=== PATIENT | male | born 1955 | race Caucasian/White ===

== ENCOUNTER → 2019-01-10 09:54 | Outpatient (CLI) | payer BC, SELFPAY ==
[2019-01-10 10:23] LABS: Blood Urea Nitrogen 10 mg/dL (7-18); Creatinine,Serum 0.94 mg/dL (0.70-1.30); Estimated Glomerular Filt Rate 81 ml/min (>60); GFR (African American) 98 ML/MIN (>60)
--- NOTE | 2019-01-10 10:34 | CT_ITS ---
PROCEDURE: CT ABDOMEN PELVIS WO/W CON CLINICAL INDICATION: INQUINAL HERNIA COMPARISON: No exams were available for comparison TECHNIQUE: IV Contrast: 75ML OPTIRAY 350 Oral Contrast 20ml Gastroview Axial images obtained with sagittal and coronal reformats. All CT scans at the facility use one or more dose reduction, viz: automated exposure control, ma/kV adjustment per patient size (including targeted exams where dose is matched to indication, i.e. head), or iterative reconstruction technique. FINDINGS: Lower thorax: No acute finding ABDOMEN: liver there is a 5 millimeter round hypodense focus in the lateral segment of the left hepatic lobe likely benign. There also benign calcified granuloma involving posterior aspect of the right hepatic lobe. There are no suspicious masses or areas of abnormal density involving the liver. Gallbladder: Nondistended. No radio opaque stones. Pancreas: No masses or peripancreatic fluid collections. Spleen: unremarkable Adrenals: unremarkable Kidneys/ureters: There are a few fluid attenuation small posterior right renal cortical lesions suggesting cysts. Left kidney is normal. There are no renal stones or hydronephrosis and there is no hydroureter or ureteral stones. PELVIS: Reproductive: unremarkable Bladder: Urinary bladder is unremarkable. There is a benign appearing small umbilical fat containing hernia. Appendix: Unremarkable. No distention or periappendiceal phlegmonous change. ABDOMEN & PELVIS: Stomach bowel: Nondistended. No obvious mass or thickening. Peritoneum: No abnormal fluid collections. No obvious inflammatory changes. No free air. Lymph nodes: No enlarged lymph nodes apparent. Vasculature: No evidence of abdominal aortic aneurysm. No retroperitoneal hemorrhage evident. Bones: No acute fracture IMPRESSION: Small fat containing umbilical hernia. Hypodense small liver and renal lesions as described above likely benign. Aortic calcifications without dilatation. No acute process. Dictated by: Aleks Caldwell 01/10/2019 13:26 Electronically signed by Aleks Caldwell in [facility] 01/10/2019 13:26
== END ==
PROVIDERS: Referring Provider Emergency Medicine; Visit Provider Emergency Medicine
DX: Z01.818 Encounter for other preprocedural examination (principal); K40.90 Unilateral inguinal hernia, without obstruction or gangrene, not specified as recurrent
CPT/HCPCS: 36415; 74178; 82565; 84520; Q9967

== ENCOUNTER → 2020-12-01 08:09 | Outpatient (CLI) | payer BC, SELFPAY ==
[2020-12-01 08:56] LABS: Basophils # 0.1 K/mm3 (0-0.2); Basophils % 0.8 % (0.1-2.0); Eosinophils # 0.3 K/mm3 (0.0-0.4); Eosinophils % 3.6 % (0.1-12.0); Hemoglobin 15.4 g/dL (14.1-18.0); Lymphocytes # 1.2 K/mm3 (0.7-4.5); Lymphocytes % 16.5 % (10-50); Mean Corpuscular HGB Conc 33.4 g/dL (31.8-35.4); Mean Corpuscular Hemoglobin 29.3 pg (27.0-31.2); Mean Corpuscular Volume 87.6 fl (80-94); Mean Platelet Volume 7.5 fl (7.4-10.4); Monocytes # 0.5 K/mm3 (0.1-1.0); Monocytes % 6.7 % (1.7-9.3); Neutrophils # 5.1 K/mm3 (1.8-7.8); Neutrophils % 72.4 % (37.0-80.0); Platelet Count 285 K/mm3 (142-424); Red Blood Count 5.25 M/mm3 (4.60-6.20); Red Cell Distribution Width 13.8 % (11.5-17.5); White Blood Count 7.1 K/mm3 (4.8-10.8)
[2020-12-01 09:41] LABS: Alanine Aminotransferase 36 U/L (12-78); Albumin Level 4.1 g/dl (3.5-5.0); Alkaline Phosphatase 74 U/L (38-126); Anion Gap 14.8 mEq/L (5-15); Aspartate Amino Transferase 32 U/L (17-59); Bilirubin,Direct 0.3 mg/dl (0.0-0.4); Bilirubin,Indirect 0.4 mg/dL (0.0-0.9); Bilirubin,Total 0.7 mg/dl (0.2-1.3); Bilirubin,Unconjugated 0.3 mg/dL (0.0-1.1); Blood Urea Nitrogen 14 mg/dl (9-20); Calcium 8.9 mg/dl (8.4-10.2); Carbon Dioxide 31 mmol/L (22.0-30.0); Chloride 97 mmol/L (98-107); Chol/HDL Ratio 2.3 (1-3.5); Cholesterol 142 mg/dl (140-200); Estimated Glomerular Filt Rate 85 ml/min (>60); GFR (African American) 103 ML/MIN (>60); Glucose 107 mg/dl (74-100); HDL Cholesterol 62 mg/dl (40-60); Potassium 4.8 mmoL/L (3.5-5.1); Sodium 138 mmol/L (136-145); Total Protein,Serum 6.6 g/dl (6.3-8.2); Triglycerides 86 mg/dl (30-150); VLDL Cholesterol 17 mg/dL (0-40)
[2020-12-01 09:51] LABS: Direct LDL Cholesterol 69.77 mg/dL (100-129)
[2020-12-01 09:56] LABS: Free T4 (Free Thyroxine) 1.12 ng/dl (0.78-2.19)
[2020-12-01 10:10] LABS: Thyroid Stimulating Hormone 1.55 uIU/mL (0.465-4.68)
== END ==
PROVIDERS: Visit Provider Internal Medicine Cardiovascular Disease
DX: Z01.812 Encounter for preprocedural laboratory examination (principal); Z20.822 Contact with and (suspected) exposure to COVID-19; R07.9 Chest pain, unspecified; I20.9 Angina pectoris, unspecified; I10 Essential (primary) hypertension; E78.5 Hyperlipidemia, unspecified; Z87.891 Personal history of nicotine dependence
CPT/HCPCS: 36415; 80048; 80061; 80076; 84439; 84443; 85025; U0003

== ENCOUNTER → 2020-12-09 07:04 | Outpatient (CLI) | payer BC, SELFPAY | PROVIDERS: Visit Provider Internal Medicine Cardiovascular Disease | DX: Z01.812 Encounter for preprocedural laboratory examination (principal); Z20.822 Contact with and (suspected) exposure to COVID-19 | CPT/HCPCS: U0003 ==

== ENCOUNTER 2020-12-10 08:15 | Day surgery (SDC) | payer BC, SELFPAY ==
[2020-12-10] VITALS (13 sets, daily range): BP systolic 76–169; BP diastolic 42–103; PULSE 51–67; RESP 18; TEMP 36.6; O2SAT 97–100; BMI 25.5
--- NOTE | 2020-12-10 | IR_ITS ---
APPROVED REPORT Patient Location: Outpatient Employment Assistant: CHICHO De Souza RT (R) PROCEDURES Left heart catheterization Left ventriculogram Selective coronary angiogram INDICATION Typical angina pectoris accompanied by numerous risk factors Informed consent was obtained prior to the procedure. COMPLICATIONS None Estimated Blood Loss: Less than 10 mls TECHNIQUE One percent lidocaine used to anesthetize the right anterior aspect of the wrist. The right radial artery was accessed via the Seldinger technique. A 6 Bangladeshi sheath was placed in the right radial artery. 2.5 mg of verapamil, 800 mcg of nitroglycerin, 1mg Lidocaine and 5000 U Heparin were given through the arterial sheath. The trap catheter was also used to perform left heart catheterization, left ventriculogram and selective coronary angiogram. At the end of the procedure the sheath was removed good hemostasis was achieved using Traclet band, patient was transferred to the postop holding area in stable condition. ANGIOGRAPHIC RESULTS The left main artery Normal The left anterior descending artery Angiographically normal accompanied by DALIA II flow The circumflex artery Nondominant angiographically normal accompanied by DALIA II flow The right coronary artery Large dominant normal The MOORE ventriculogram reveals Normal 65% The left ventricular end-diastolic pressure 10 mmHg IMPRESSION Normal coronary arteries Slow flow down the LAD and circumflex artery consistent with endothelial dysfunction which is likely etiology for patient's angina pectoris Normal ejection fraction Normal left ventricular end-diastolic pressure PLAN 1. Treatment of underlying endothelial dysfunction Electronically signed by : Indra Spivey MD 12/10/2020 10:51:02
== END 2020-12-10 14:35 | disposition home or self-care (01) ==
LOC: CATHLAB 08:17
PROVIDERS: PCP Physician Assistant; Visit Provider Internal Medicine
DX: R94.30 Abnormal result of cardiovascular function study, unspecified (principal); I25.118 Atherosclerotic heart disease of native coronary artery with other forms of angina pectoris; I10 Essential (primary) hypertension; E78.2 Mixed hyperlipidemia; Z79.899 Other long term (current) drug therapy
CPT/HCPCS: 93458; 99152; C1725; C1769; J1644; Q9967

== ENCOUNTER 2020-12-11 08:57 | Emergency (ER) | payer BC, SELFPAY ==
[2020-12-11 09:00] VITALS: BP 156/81; PULSE 84; RESP 18; TEMP 36.8; O2SAT 96; BMI 25.9
--- NOTE | 2020-12-11 09:29 | XR_ITS ---
PROCEDURE INFORMATION: Exam: XR Left Shoulder Exam date and time: 12/11/2020 9:29 AM Age: 65 years old Clinical indication: Patient HX: Left shoulder pain for several weeks with no injury. Patient states he had a heart cath yesterday that was normal. ; Additional info: Pain, no known injury TECHNIQUE: Imaging protocol: XR Left shoulder. Views: 2 or more views. COMPARISON: LDCTLCAS LDCT FOR LUNG CA SCREEN 02/16/2016 8:16 AM FINDINGS: Bones/joints: There are some degenerative changes at the glenohumeral joint. There is no fracture. Soft tissues: Normal. IMPRESSION: No fracture.
--- NOTE | 2020-12-11 09:35 | HMH.EDUTC ---
[facility] Disposition Clinical Impression: Shoulder pain Qualifiers: Chronicity: unspecified Laterality: left Qualified Code(s): M25.512 - Pain in left shoulder Disposition: Home, Self-Care Condition on Discharge: Good Instructions: DI for Shoulder Pain, Cyclobenzaprine Additional Instructions: *Ibuprofen nakul 6 hours with meal as needed for pain/inflammation if your doctor has said that you can take it if not Take Tylenol as directed on package *Not additional anti-inflammatory like motrin, aleve, advil with the above amount of ibuprofen. You can still take Tylenol every 4 hours as needed if you need something else for pain *Ice 20 minutes every 2 hours for the first 48 hours after the initial injury followed by moist heat every 20 minutes 3-4 times a day to affected area *Muscle relaxer every 8 hours as needed for muscle spasms but remember, it WILL cause drowsiness You cannot take it and drive, operate machinery or care for small children. *Keep this area active, no movement leads to more stiffness, However take it easy and avoid heavy lifting pushing or pulling *Follow up with you family doctor if no improvement for further treatment Call back to the [facility] later today for the official reading of your xray Return if needed Straight to ER if any life threatening symptoms Referrals: Leeann Talamantes PA [Primary Care Provider] - As needed Forms: Work/School Release Time of Disposition: 10:02 Medical Decision Making - Yosi Inquiry Pt receiving controlled substance: No Yosi was queried for this patient: No Vital Signs: 12/11/20 09:00 12/11/20 09:52 Temperature 98.3 F 98.3 F Temperature Source Oral Pulse Rate 84 Pulse Rate [Right Brachial] 84 Respiratory Rate 18 18 Blood Pressure 156/81 H Blood Pressure [Right Arm] 156/81 H Blood Pressure Mean [Right Arm] 106 Blood Pressure Source [Right Arm] Automatic Cuff Blood Pressure Position [Right Arm] Sitting 02 Sat by Pulse Oximetry 96 Oxygen Delivery Method Room Air - Radiology Data #1 Image(s): Shoulder Image Reviewed: Yes I reviewed the patient's radiology image Preliminary Findings: No Fracture Seen Medical Decision Narrative: Spoke with patient and due to complain of left arm pain with recently cardiac work up and Heart Cath yesterday recommended patient be transferred to the ED for further work up and evaluation and patient declined States that he didnt want to go over there States that he looked in the mirror last night and noticed that his shoulders looked different and thinks he may have torn something and wanted to get it checked 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 by RN): PATIENT C/O LEFT SHOULDER PAIN THAT RADIATES DOWN ARM AND MAKES FINGERS NUMB. STATES PAIN HAS BEEN THERE APPROX 1 MONTH. NO KNOWN INJURY. HE SAW PCP ON 11/18 FOR SAME ISSUE AND SHE RECOMMENDED CARDIAC WORKUP. 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
[2020-12-11 09:52] VITALS: BP 156/81; PULSE 84; RESP 18; TEMP 36.8; O2SAT 96
== END 2020-12-11 10:20 | disposition home or self-care (01) ==
PROVIDERS: Emergency Provider Nurse Practitioner; PCP Physician Assistant
DX: M25.512 Pain in left shoulder (principal)
CPT/HCPCS: 73030; 99202; G0463

== ENCOUNTER 2020-12-12 09:14 | Emergency (ER) | payer BC, SELFPAY ==
[2020-12-12 09:15] VITALS: BP 161/87; PULSE 78; RESP 18; TEMP 36.8; O2SAT 98; BMI 25.7
--- NOTE | 2020-12-12 09:56 | HMH.EDGENADL ---
ED Disposition Clinical Impression: Shoulder pain Qualifiers: Chronicity: chronic Laterality: left Qualified Code(s): M25.512 - Pain in left shoulder; G89.29 - Other chronic pain Disposition: Home, Self-Care Condition on Discharge: Fair Instructions: DI for Muscle Strain Additional Instructions: Wanted to follow-up with Dr. Melendez who is an orthopedic doctor regarding your left shoulder pain. Please also follow-up with your primary care physician. Do not take the muscle relaxer, instead take the gabapentin, he may also take ibuprofen and Tylenol with this. Return to the emergency department for any new or concerning symptoms. Prescriptions: Gabapentin [Gabapentin 100mg Cap] 300 mg PO BID 7 Days #42 cap Prescription Printed Referrals: Leeann Talamantes PA [Primary Care Provider] - - Critical Care Critical Care Time: No Attestation: On 12/12/20, the high probability of a clinically significant, sudden or life threatening deterioration of the following system(s) required my full and direct attention, intervention and personal management. The time I documented below is in addition to time spent performing reported procedures but includes the following listed in this critical care notation. Medical Decision Making - Yosi Inquiry Pt receiving controlled substance: Yes Yosi was queried for this patient: Yes Risks and benefits of using a controlled substance: were discussed with pt by me Vital Signs: 12/12/20 09:15 Temperature 98.3 F Temperature Source Oral Pulse Rate [Right] 78 Respiratory Rate 18 Blood Pressure [Right Arm] 161/87 H Blood Pressure Mean [Right Arm] 111 02 Sat by Pulse Oximetry 98 Oxygen Delivery Method Room Air General Adult HPI - General Chief complaint: Extremity Problem,Nontraumatic Stated complaint: left arm pain, no accident Time Seen by Provider: 12/12/20 09:15 Mode of Arrival: Ambulatory Limitations: No Limitations Description of Symptoms (Recalled from ER Triage Doc. by RN): PT C/O LEFT PAIN RADIATING DOWN ARM WITH NUMBNESS & TINGLING, WORSENED LAST NIGHT. STATES THIS HAS BEEN A PROBLEM SINCE MID NOVEMBER, [facility], HAD HEART CATH ON SUNDAY TO R/O CARDIAC INVOLVEMENT. - History of Present Illness HPI narrative: A 65-year-old male who is presenting to the emergency department with chief complaint of chronic left arm pain and numbness. He has had similar problems for the past 2 months. 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 He states that he has had tingling, changes in sensation of his left arm have been constant since then. Pain tingling burning has worsened over the past few weeks. He also recently went to go see a outside sales associate and had a heart cath completed. Did not need any stents, have any significant areas of stenosis. He is worsening of the pain with exertion, as well as chest pain stating that the pain begins in his shoulder and moves down through the arm. He does note that it is worse in a radial distribution of his hand. He came to the urgent care clinic yesterday and had an x-ray completed which showed no acute fractures although did show some degeneration of the shoulder. Pain is exacerbated by laying down flat, and laying on his left side. He finds that the pain is relieved with some elevation of his shoulder. Is given muscle relaxers which have been nothing to improve the pain. - Related Data Home Medications Medication Instructions Recorded Confirmed cyclobenzaprine 5 mg tablet 5 mg PO TID PRN tab 11/19/20 12/10/20 Aspirin [Low Dose Aspirin EC] 81 mg PO DAILY 12/10/20 12/10/20 Metoprolol Succinate [Metoprolol 25 mg PO QDAY 12/10/20 12/10/20 Succinate 25mg Tablet*] Omeprazole 40 mg PO QDAY 12/10/20 12/10/20 Rosuvastatin Calcium 20 mg PO DAILY 12/10/20 12/10/20 Previous Rx's Medication Instructions Recorded Gabapentin [Gabapentin 100mg Cap] 300 mg PO BID 7 Days #42 cap 12/12/20
[2020-12-12 10:28] VITALS: BP 132/74; PULSE 78; RESP 16; TEMP 36.6; O2SAT 98
== END 2020-12-12 10:30 | disposition home or self-care (01) ==
PROVIDERS: Emergency Provider Emergency Medicine; PCP Physician Assistant
DX: M25.512 Pain in left shoulder (principal); G89.29 Other chronic pain; Z87.891 Personal history of nicotine dependence
CPT/HCPCS: 99281

== ENCOUNTER → 2021-01-12 09:58 | Outpatient (CLI) | payer BC, SELFPAY ==
--- NOTE | 2021-01-12 10:02 | CA_ITS ---
APPROVED REPORT Supervisor Burling And Joining: SU Laterality: Bilateral Indications: carotid bruit/left arm numbness Risk Factors Hypertension: Hyperlipidemia hx of smoking Doppler Spectral Velocity Analysis ECA (R) 128.30/28.90 cm/s ECA (L) 133.70/26.70 cm/s dICA (R) 94.10/34.20 cm/s dICA (L) 99.40/31.00 cm/s Brittni (R) 129.40/31.00 cm/s Brittni (L) 102.70/39.60 cm/s pICA (R) 103.70/26.70 cm/s pICA (L) 72.70/21.40 cm/s dCCA (R) 108.00/31.00 cm/s dCCA (L) 105.80/29.40 cm/s pCCA (R) 100.50/27.80 cm/s pCCA (L) 149.30/38.80 cm/s Vert (R) 35.80/12.30 cm/s Vert (L) 59.90/17.10 cm/s ICA/CCA 1.20 ICA/CCA 0.97 Findings Duplex evaluation demonstrates stenosis of the right proximal internal carotid artery 20%. Duplex evaluation demonstrates stenosis of the left proximal internal carotid artery <20%. Conclusion Duplex evaluation demonstrates stenosis of the right proximal internal carotid artery 20%. Duplex evaluation demonstrates stenosis of the left proximal internal carotid artery <20%. Electronically signed by : Hudson Long MD 01/12/2021 16:26:20
--- NOTE | 2021-01-12 10:02 | CA_ITS ---
APPROVED REPORT EXAM: Comprehensive 2D, Doppler, and color-flow Echocardiogram Arc And Gas Welder: Gia Trinidad RT(R) Ht: 5 ft 11 in Wt: 199lbs BSA: 2.10 BP: 163/88 mmHg Indications: SOA, CP, HTN, CAD, hyperlipidemia, ex smoker, lt arm numbness and tingling 2D Dimensions Aortic Root 2.14 cm M: 3.1 - 3.7 LVEF (Murray's) 57.80 % M: 52 - 72 LV Volume 116.10 mL M: 62 - 150 LV Volume Index 55.28 mL/m2 M: 34 - 74 LA Volume 22.70 mL LA Volume Index 10.80 mL/m2 (M/F) 16-34 M-Mode Dimensions RVDd 2.89 cm (0.9-2.6) LA Diam 2.94 cm (1.9-4.0) LVDd 5.43 cm (3.5-5.7) Ao Diam 3.09 cm (2.0-3.7) LVDs 3.86 cm (3.5-5.7) IVSd 0.71 cm (0.6-1.1) PWd 0.61 cm (0.6-1.1) EF (Teich) 55.10% FS 28.90% EDV (Teich) 143.10 mL ESV (Teich) 64.30 mL LV Diastology E Decel Time 223.00 (160-240 msec) E/A Ratio 0.8 MED E' 7.40 (< 7 cm/sec) E'/MED E' Ratio 7.41 (>14) LAT E' 7.80 (<10 cm/sec) E/LAT E' Ratio 7.03 (>14) Mitral Valve MV E Max Tad. 55.00 (40-130 cm/s) MV A Velocity 73.00 (40-130 cm/s) E/A Ratio 0.75 MV Decel. Time 223.00 (160-240 ms) MV PHT 65.00 ms Left Ventricle Left atrium is qualitatively mildly enlarged, left ventricle is normal size, mild concentric left ventricular hypertrophy, visually estimated ejection fraction 55% with no regional wall motion abnormality, grade 1 diastolic dysfunction seen without tissue Doppler evidence of raise left atrial pressure. Right Ventricle Right atrium and right ventricle mildly enlarged with normal contractility. Aortic Valve Aortic valve is minimally thickened and fibrosed, there is no aortic stenosis or aortic insufficiency. Mitral Valve Mitral valve grossly normal, there is trace mitral regurgitation. Tricuspid Valve Tricuspid grossly normal, there is trace tricuspid regurgitation, tricuspid regurgitation jet velocity is inadequate for calculation of the right ventricular systolic pressure. Pulmonic Valve Pulmonic valve is poorly visualized. Great Vessels Aortic root is normal size. Inferior vena cava is normal size with normal inspiratory collapse. Pericardium No significant pericardial effusion noted. Conclusion 1. Mild biatrial enlargement, normal left ventricular size, mild concentric left ventricular hypertrophy, visually estimated ejection fraction 55% with no regional wall motion abnormality, grade 1 diastolic dysfunction seen without tissue Doppler evidence of raise left atrial pressure. 2. Trace mitral and tricuspid regurgitation. 3. No significant pericardial effusion noted. 4. Inferior vena cava is normal size with normal inspiratory collapse. Electronically signed by : Sudhir Unger MD 01/13/2021 11:37:26
== END ==
PROVIDERS: PCP Physician Assistant; Visit Provider Internal Medicine Cardiovascular Disease
DX: R07.9 Chest pain, unspecified (principal); I20.9 Angina pectoris, unspecified; E78.5 Hyperlipidemia, unspecified; I10 Essential (primary) hypertension; R20.0 Anesthesia of skin; Z87.891 Personal history of nicotine dependence
CPT/HCPCS: 93306; 93880

== ENCOUNTER 2021-04-16 04:17 | Emergency (ER) | payer BC, SELFPAY ==
[2021-04-16 04:18] VITALS: BP 150/95; PULSE 85; RESP 16; TEMP 36.7; O2SAT 96; BMI 28.2
--- NOTE | 2021-04-16 04:34 | US_ITS ---
PROCEDURE INFORMATION: Exam: US Scrotum Exam date and time: 04/16/2021 4:34 AM Age: 65 years old Clinical indication: Scrotum pain; Prior surgery; Surgery date: 6+ months; Surgery type: Vasectomy; Additional info: RT testicular pain TECHNIQUE: Imaging protocol: Real-time ultrasound of the scrotum and contents with color Doppler and image documentation. COMPARISON: CT ABDOMEN PELVIS WO/W CON 01/10/2019 11:13 AM FINDINGS: Right testicle: Varicocele noted. No mass. No torsion. Normal vascular flow. Left testicle: Normal. No mass. No torsion. Normal vascular flow. Epididymides: Normal. Scrotum: Normal. IMPRESSION: 1. Essentially unremarkable scrotal ultrasound. No evidence for testicular torsion or mass. 2. Right varicocele noted. Please note: Images and documentation having incorrect annotation. The testicles have been incorrectly labeled as thyroid . The technologist has been requested to correct.
[2021-04-16 04:47] LABS: Basophils # 0.3 K/mm3 (0-0.2); Basophils % 2.7 % (0.1-2.0); Eosinophils # 0.2 K/mm3 (0.0-0.4); Hematocrit 44.3 % (42.0-52.0); Hemoglobin 14.7 g/dL (14.1-18.0); Lymphocytes # 1.5 K/mm3 (0.7-4.5); Mean Corpuscular HGB Conc 33.2 g/dL (31.8-35.4); Mean Corpuscular Hemoglobin 29.3 pg (27.0-31.2); Mean Corpuscular Volume 88.3 fl (80-94); Mean Platelet Volume 7.8 fl (7.4-10.4); Monocytes # 0.6 K/mm3 (0.1-1.0); Monocytes % 6.3 % (1.7-9.3); Neutrophils # 7.5 K/mm3 (1.8-7.8); Neutrophils % 73.9 % (37.0-80.0); Platelet Count 267 K/mm3 (142-424); Red Blood Count 5.01 M/mm3 (4.60-6.20); White Blood Count 10.1 K/mm3 (4.8-10.8)
--- NOTE | 2021-04-16 04:56 | HMH.EDGENADL ---
ED Disposition Clinical Impression: Epididymitis Disposition: Home, Self-Care Condition on Discharge: Good Instructions: DI for Epididymitis Additional Instructions: ice and use meds and see pcp for follow up Prescriptions: levoFLOXacin [Levaquin 500mg tab] 500 mg PO DAILY #7 tab Transmission Status: Pending to [facility] #[id number] Ketorolac Tromethamine [Toradol 10mg tablet] 10 mg PO Q6HP PRN #10 tab MDD 40mg/day PRN Reason: Moderate To Severe Pain Transmission Status: Pending to [facility] #[id number] Referrals: Leeann Talamantes PA [Primary Care Provider] - - Critical Care Critical Care Time: No Attestation: On 04/16/21, the high probability of a clinically significant, sudden or life threatening deterioration of the following system(s) required my full and direct attention, intervention and personal management. The time I documented below is in addition to time spent performing reported procedures but includes the following listed in this critical care notation. Medical Decision Making - Medical Records Medical records reviewed: Yes: I reviewed the patient's medical records. - Yosi Inquiry Pt receiving controlled substance: No Vital Signs: 04/16/21 04:18 Temperature 98.1 F Temperature Source Oral Pulse Rate [Right] 85 Respiratory Rate 16 Blood Pressure [Right Arm] 150/95 H Blood Pressure Mean [Right Arm] 113 02 Sat by Pulse Oximetry 96 - Lab Data Lab results reviewed: Yes: I reviewed the patient's lab results. Lab Results 04/16/21 04:38: WBC 10.1, RBC 5.01, Hgb 14.7, Hct 44.3, MCV 88.3, MCH 29.3, MCHC 33.2, RDW 14.0, Plt Count 267, MPV 7.8, Neut % (Auto) 73.9, Lymph % (Auto) 15.0, Overton % (Auto) 6.3, Eos % (Auto) 2.0, Baso % (Auto) 2.7 H, Neut # (Auto) 7.5, Lymph # (Auto) 1.5, Overton # (Auto) 0.6, Eos # (Auto) 0.2, Baso # (Auto) 0.3 H, ESR 2 04/16/21 04:38: Sodium 135 L, Potassium 3.9, Chloride 98, Carbon Dioxide 29, Anion Gap 11.9, BUN 15, Creatinine 1.00, Estimated Creat Clear 100, Estimated GFR 75, Est GFR ( Amer) 91, Glucose 111 H, Calcium 9.0, Total Bilirubin 1.0, AST 28, ALT 24, Alkaline Phosphatase 79, C-Reactive Protein 1.8, Total Protein 7.3, Albumin 4.8, Globulin 2.5, Albumin/Globulin Ratio 1.9 H, Procalcitonin 0.065 Result diagrams: 04/16/21 04:38 04/16/21 04:38 Orders (Tests/Meds): ED MEDICATIONS Generic Name Dose Route Start Last Admin Trade Name Freq PRN Reason Stop Dose Admin Sodium Chloride 1,000 mls @ 999 mls/hr 04/16/21 04:45 04/16/21 04:53 Sod Chlor 0.9% 1000ml Bag IV 04/16/21 05:45 999 mls/hr .Q1H1M ANSLEY Administration Discontinued Medications Generic Name Dose Route Start Last Admin Trade Name Freq PRN Reason Stop Dose Admin Ketorolac Tromethamine 30 mg 04/16/21 04:35 04/16/21 04:52 Ketorolac 30mg/Ml Vial IV 04/16/21 04:36 30 mg ONCE ONE Administration Morphine Sulfate 4 mg 04/16/21 05:12 04/16/21 05:13 Morphine 4mg/Ml Syringe IV 04/16/21 05:13 4 mg ONCE ONE Administration Ondansetron HCl 4 mg 04/16/21 04:54 04/16/21 04:56 Ondansetron 4mg/2ml Vial IV 04/16/21 04:55 4 mg ONCE ONE Administration ORDERS Category Date Time Status Testicular US [US Testicular] Stat Ultrasound 04/16/21 04:34 Taken - US Data US Images: Other (scrotal) Medical Decision Narrative: acute epididymitis General Adult HPI - General Chief complaint: PAIN Stated complaint: Pulled groin muscle rt side Time Seen by Provider: 04/16/21 04:30 Mode of Arrival: Ambulatory Source of Information: Patient, Medical Record Limitations: No Limitations Description of Symptoms (Recalled from ER Triage Doc. by RN): pt c/o rt testile pain that started @ 11pm last night. - History of Present Illness HPI narrative: acute rt testicular pain w/o trauma or d/c Onset (ago): hour(s) Location: genitals Severity: moderate Associated symptoms: denies other symptoms Treatments prior to arrival: none - Relat
[2021-04-16 04:59] LABS: Alanine Aminotransferase 24 U/L (12-78); Albumin Level 4.8 g/dl (3.5-5.0); Albumin/Globulin Ratio 1.9 (1.1-1.8); Alkaline Phosphatase 79 U/L (38-126); Anion Gap 11.9 mEq/L (5-15); Aspartate Amino Transferase 28 U/L (17-59); Blood Urea Nitrogen 15 mg/dl (9-20); Carbon Dioxide 29 mmol/L (22.0-30.0); Chloride 98 mmol/L (98-107); Creatinine Clearance Estimated 100 mL/min (50-200); Estimated Glomerular Filt Rate 75 ml/min (>60); GFR (African American) 91 ML/MIN (>60); Globulin 2.5 g/dL (1.3-3.2); Glucose 111 mg/dl (74-100); Potassium 3.9 mmoL/L (3.5-5.1); Sodium 135 mmol/L (136-145); Total Protein,Serum 7.3 g/dl (6.3-8.2)
--- NOTE | 2021-04-16 04:59 | PC.NURSE ---
@ 4500 Called Radiology to page U/S tech for testicular u/s
[2021-04-16 05:04] LABS: C-Reactive Protein 1.8 mg/L (0-4)
[2021-04-16 05:11] LABS: Erythrocyte Sedimentation Rate 2 mm/hr (0-20)
[2021-04-16 05:18] LABS: Procalcitonin 0.065 ng/mL (0.0-2.0)
[2021-04-16 07:00] VITALS: BP 150/95; PULSE 85; RESP 20; TEMP 36.9; O2SAT 99
== END 2021-04-16 07:04 | disposition home or self-care (01) ==
PROVIDERS: Emergency Provider Emergency Medicine; PCP Physician Assistant
DX: N45.1 Epididymitis (principal); E78.5 Hyperlipidemia, unspecified
CPT/HCPCS: 76870; 80053; 84145; 85025; 85651; 86140; 96365; 96375; 99283; J2405

== ENCOUNTER 2023-05-14 09:01 | Outpatient (CLI) | payer MEDICARE, SELFPAY ==
--- NOTE | 2023-05-14 09:24 | US_ITS ---
FINAL REPORT TECHNIQUE: Ultrasound images of the testicles were obtained bilaterally. Color Doppler images were obtained. CLINICAL HISTORY: TESTICULAR PAIN COMPARISON: 04/16/2021 FINDINGS: Right testicle measures 3.5 cm. There is normal blood flow. No masses identified. Right varicocele is noted. There are 6 and a 5 mm cystic areas adjacent to the superior right testicle which may represent epididymal cysts or other cysts. Left testicle measures 3.3 cm. There is normal blood flow. No masses identified. IMPRESSION: Right varicocele. Cystic areas right testicle may represent epididymal cysts or other cyst. Reviewed, Interpreted and Dictated by Nikunj Garcia III, MD Transcribed by Delaney Trujillo Authenticated and [facility]
== END 2023-05-14 23:59 | disposition home or self-care (01) ==
PROVIDERS: PCP Physician Assistant; Visit Provider Physician Assistant
DX: N50.811 Right testicular pain (principal)
CPT/HCPCS: 76870

== ENCOUNTER 2023-07-09 11:22 | Outpatient (CLI) | payer MEDICARE, SELFPAY ==
[2023-07-09 12:24] LABS: Blood Urea Nitrogen 12 mg/dl (9-20); Estimated Glomerular Filt Rate 84 ml/min (>60); GFR (African American) 102 ML/MIN (>60)
[2023-07-09 12:54] LABS: Prostate Specific Ag Screen 7.7 ng/ml (0.0-4.0)
[2023-07-09 14:56] LABS: Microscopic, Urine URINE MICROSCOPIC (MICROSCOPIC)
[2023-07-09 15:41] LABS: Appearance,Urine CLEAR (Clear); Bilirubin,Urine Negative (Negative); Blood, Urine Negative (Negative); Color,Urine YELLOW (Yellow); Glucose,Urine (UA) Negative (Negative); Ketones,Urine Negative (Negative); Leukocyte Esterase,Urine Negative (Negative); Nitrate,Urine Negative (Negative); PH,Urine 5.5 (5.0-8.5); Protein,Urine Negative (Negative); Specific Gravity, Urine 1.025 (1.005-1.030); Urobilinogen,Urine 0.2 EU/dl (0.2)
[2023-07-09 16:00] LABS: Squamous Epithelial Cell,Urine Occasional #/hpf (0-5)
== END 2023-07-09 23:59 ==
PROVIDERS: PCP Physician Assistant; Visit Provider Urology
DX: R31.9 Hematuria, unspecified (principal); N40.0 Benign prostatic hyperplasia without lower urinary tract symptoms; N45.1 Epididymitis; Z12.5 Encounter for screening for malignant neoplasm of prostate
CPT/HCPCS: 36415; 81001; 82565; 84520; G0103

== ENCOUNTER 2023-07-11 10:41 | Outpatient (CLI) | payer MEDICARE, SELFPAY ==
--- NOTE | 2023-07-11 10:41 | CT_ITS ---
FINAL REPORT TECHNIQUE: Axial CT images of the abdomen and pelvis were obtained before and after the administration of IV contrast. Oral contrast was administered.This study was performed with techniques to keep radiation doses as low as reasonably achievable (ALARA). Individualized dose reduction techniques using automated exposure control or adjustment of mA and/or kV according to the patient''s size were employed. CLINICAL HISTORY: Benign Prostatic Hyperplasia COMPARISON: 01/10/2019 FINDINGS: Abdomen: The lung bases are clear. The heart is normal in size. There is an 11 mm low-attenuation mass in the mid right hepatic lobe, which does not appear to be a simple cyst. This mass was previously 13 mm in size on the prior CT of 2019. . The spleen is unremarkable. No adrenal masses present. The pancreas has an unremarkable appearance. There are 2 right renal cysts present, the larger of the 2 measuring 29 mm in size. The aorta is normal in caliber. There is no free fluid or adenopathy. No mass or abnormal fluid collection is seen. There is a small umbilical hernia containing fat. Precontrast images demonstrate no evidence of nephrolithiasis. Pelvis: The appendix is normal in appearance. There is mild wall thickening of the wall of the bladder, likely inflammatory. There are bilateral inguinal hernias containing fat. No inflammatory process is seen. There is no evidence of mass or adenopathy. There is no evidence of bowel obstruction. IMPRESSION: Low-attenuation mass in the midportion of the right hepatic lobe, which does not appear to be a simple cyst. This is smaller than seen on the prior CT. This likely remains a hemangioma or other benign mass lesion given the slight decrease in size over a 4 and half year period. 2 right renal cysts are present. Mild bladder wall thickening, likely inflammatory. Reviewed, Interpreted and Dictated by Nikunj Garcia III, MD Transcribed by Rachell Cartagena Authenticated and [facility]
[2023-07-11] MEDS: IOPAMIDOL-370 (76%);100ML BOTTLE 75 ML IV (11:01)
[2023-07-11] MEDS: SODIUM CHLORIDE 0.9% 10ML SYR (RAD ONLY) 10 ML IV (11:01)
== END 2023-07-11 23:59 ==
LOC: RAD 10:41
PROVIDERS: PCP Physician Assistant; Visit Provider Urology
DX: R31.9 Hematuria, unspecified (principal); N40.0 Benign prostatic hyperplasia without lower urinary tract symptoms; N45.1 Epididymitis
CPT/HCPCS: 74178; Q9967

== ENCOUNTER 2023-07-16 15:10 | Outpatient (CLI) | payer MEDICARE, SELFPAY ==
[2023-07-17 08:26] LABS: PSA, Free 0.45 ng/mL; Prostate Specific Ag 5.7 ng/mL (0.0-4.0)
== END 2023-07-16 23:59 ==
LOC: LAB 15:11
PROVIDERS: PCP Physician Assistant; Visit Provider Urology
DX: R97.20 Elevated prostate specific antigen [PSA] (principal)
CPT/HCPCS: 36415; 84153; 84154

== ENCOUNTER 2024-02-15 09:13 | Day surgery (SDC) | payer MEDICARE, SELFPAY ==
[2024-02-13 16:48] VITALS: BMI 26.4
[2024-02-15 09:31] VITALS: BP 140/78; PULSE 68; RESP 18; TEMP 36.2; O2SAT 97
[2024-02-15] MEDS: 0.9 % SODIUM CHLORIDE 1000ML 1,000 ML 25 ML IV (09:39)
--- NOTE | 2024-02-15 10:51 | HMH.SCOPE ---
Procedure: Date: 02/15/24 Patient Date of :: 1955 Procedure Performed:: Colonoscopy to terminal ileum Indications:: Patient is a 68-year-old male who underwent colonoscopy 03/28/2016 at which time he had a cecal polyp removed. Recommendations were for repeat colonoscopy 3 to 5 years. He has prostate cancer and scheduled for [facility] . Performing Provider:: Nikunj Morrison MD Referring Provider:: Leeann Talamantes Sedation:: MAC sedation Procedure:: Patient history was obtained and appropriate physical examination was performed. Patient's medications and allergies were reviewed. Informed consent was obtained after explaining the benefits, alternatives, and risks of the procedure including, but not limited to, bleeding, perforation, missed lesions, and adverse reaction to anesthesia medications. Patient was transported to endoscopy procedure room. Patient was connected to monitoring devices. Throughout the procedure the patient's blood pressure, pulse, and oxygen saturations were monitored continuously. Patient identification and planned procedure were verified by the staff. Patient was positioned in lateral decubitus position. Digital anorectal exam was performed. Variable stiffness Olympus colonoscope was inserted and advanced under direct visualization to the cecum. Adequacy of the colonic preparation was noted. The colonoscope was advanced a short distance into the terminal ileum. The colonoscope was then slowly withdrawn while carefully examining the color, texture, anatomy, and integrity of the mucosoa circumferentially. Within the rectum retroflexion was performed. Colonoscope was then withdrawn. Impression: There was a significant amount of particulate thick opaque stool mostly in the right colon with undigested vegetable matter. With high-volume trans colonoscopic irrigation and suctioning this was able to be mostly cleared. Colonoscope was slowly withdrawn and careful surveillance was carried out. There was some sigmoid diverticulosis. No definite polyps noted. Findings:: Suboptimal prep Sigmoid diverticulosis Recommendations:: Given prior history and suboptimal prep recommend repeat colonoscopy 3 years with multi day maximum prep and low residue diet Complications:: None immediately apparent Estimated blood obtained (mL): 0 Colonoscopy Component Colonoscopy Component Was a colonoscopy performed during today's procedure?: Yes Recommended follow up colonoscopy of at least 10 years?: No If no, follow up colonoscopy recommended in ___ years?: See above Reason for not recommending >/= 10 yr follow-up interval?: See above
--- NOTE | 2024-02-15 10:59 | P.PNANES_ITS ---
[facility] Disclaimer: The information contained in this section may have been updated after the patient was seen, as this information can be updated by other users. Medical History History of epididymitis History of prostate cancer Surgical History History of colonoscopy with polypectomy Family History Other History of angina Social History Smoking Status: Former smoker tobacco type: cigarettes alcohol intake: current alcohol intake frequency: 0-2 drinks per day substance use type: denies use current occupational status: retired and other Travel in the last 8 weeks: None household members: spouse housing: house current occupational exposures/hazards: No caffeine: Yes [facility] Anesthesia Checklist Patient Identification Patient Identification: Arm Band, Family and Verbal (Name & ) Structural Data Admitted From: Home Planned Operative Procedure/s: Colonoscopy Consent for Planned Operative Procedure(s) Verified: Yes Verified Documents: Surgical Consent and History and Physical NPO Status Verified Time NPO: 04:00 Chart Verification Results Verified: CBC, BMP, ECG and Chest Xray Additional verifications Patient : No Anesthesia Reactions: No Cardiovascular Assessment Heart Sounds: S1 & S2 Pulse Rhythm: Irregular Peripheral Edema: No Airway Assessment Mallampati Score:: Class II C-Spine Mobility Assessed: Yes (FROM demonstrated) TMJ Mobility Assessed: Yes Dentition: Edentulous Neurological Assessment Level of Consciousness: Awake, Alert, Appropriate and Follows Commands Hx Seizures: No Numbness or tingling in extremities: No Anesthesia Plan Anesthesia Risk discussed: Yes Anesthesia Plan: Verified ASA Class: III Anesthesia Type: MAC
[2024-02-15 11:35] VITALS: BP 99/63; PULSE 60; RESP 17; TEMP 36.4; O2SAT 93
[2024-02-15 11:45] VITALS: BP 102/61; PULSE 59; RESP 17; O2SAT 96
[2024-02-15 11:55] VITALS: BP 103/60; PULSE 62; RESP 17; O2SAT 94
[2024-02-15 12:05] VITALS: BP 101/64; PULSE 64; RESP 17; O2SAT 94
== END 2024-02-15 12:05 | disposition home or self-care (01) ==
PROVIDERS: PCP Physician Assistant; Visit Provider Surgery
PROC: 0DJD8ZZ Inspection of Lower Intestinal Tract, Via Natural or Artificial Opening Endoscopic (ICD-10-PCS; CPT 45378; principal; 2024-02-15 10:30)
DX: K57.30 Diverticulosis of large intestine without perforation or abscess without bleeding (principal); Z09 Encounter for follow-up examination after completed treatment for conditions other than malignant neoplasm; Z86.0100 Personal history of colon polyps, unspecified
CPT/HCPCS: 45378; J7030

== ENCOUNTER 2024-05-12 11:41 | Outpatient (CLI) | payer MEDICARE, SELFPAY ==
[2024-05-12 11:58] LABS: Basophils % 0.7 % (0.1-2.0); Eosinophils # 0.1 K/mm3 (0.0-0.4); Eosinophils % 1.7 % (0.1-12.0); Hematocrit 41.9 % (42.0-52.0); Hemoglobin 14.1 g/dL (14.1-18.0); Lymphocytes # 0.9 K/mm3 (0.7-4.5); Lymphocytes % 14.7 % (10-50); Mean Corpuscular HGB Conc 33.7 g/dL (31.8-35.4); Mean Corpuscular Hemoglobin 28.4 pg (27.0-31.2); Mean Corpuscular Volume 84.3 fl (80-94); Mean Platelet Volume 9.1 fl (7.4-10.4); Monocytes # 0.4 K/mm3 (0.1-1.0); Monocytes % 6.5 % (1.7-9.3); Neutrophils # 4.5 K/mm3 (1.8-7.8); Neutrophils % 76.2 % (37.0-80.0); Platelet Count 194 K/mm3 (142-424); Red Blood Count 4.97 M/mm3 (4.60-6.20); Red Cell Distribution Width 13.2 % (11.5-17.5); White Blood Count 5.9 K/mm3 (4.8-10.8)
[2024-05-12 12:33] LABS: Alanine Aminotransferase 21 U/L (12-78); Albumin Level 4.4 g/dl (3.5-5.0); Alkaline Phosphatase 60 U/L (38-126); Anion Gap 11.5 mEq/L (5-15); Aspartate Amino Transferase 24 U/L (17-59); Bilirubin,Indirect 0.5 mg/dL (0.0-0.9); Bilirubin,Total 0.5 mg/dl (0.2-1.3); Bilirubin,Unconjugated 0.5 mg/dL (0.0-1.1); Blood Urea Nitrogen 9 mg/dl (9-20); Calcium 8.9 mg/dl (8.4-10.2); Carbon Dioxide 28 mmol/L (22.0-30.0); Chloride 104 mmol/L (98-107); Chol/HDL Ratio 2.5 (1-3.5); Cholesterol 115 mg/dl (140-200); Estimated Glomerular Filt Rate 96 ml/min (>60); GFR (African American) 117 ML/MIN (>60); Glucose 126 mg/dl (74-100); HDL Cholesterol 46 mg/dl (40-60); Magnesium 1.9 mg/dl (1.6-2.3); Potassium 4.5 mmoL/L (3.5-5.1); Sodium 139 mmol/L (136-145); Total Protein,Serum 6.1 g/dl (6.3-8.2); Triglycerides 66 mg/dl (30-150); VLDL Cholesterol 13 mg/dL (0-40)
[2024-05-12 13:03] LABS: Thyroid Stimulating Hormone 1.22 uIU/mL (0.465-4.68)
== END 2024-05-12 23:59 | disposition home or self-care (01) ==
LOC: LAB 11:43
PROVIDERS: PCP Physician Assistant; Visit Provider Nurse Practitioner
DX: E78.2 Mixed hyperlipidemia (principal); I10 Essential (primary) hypertension; I25.118 Atherosclerotic heart disease of native coronary artery with other forms of angina pectoris; Z87.891 Personal history of nicotine dependence
CPT/HCPCS: 36415; 80048; 80061; 80076; 83735; 84439; 84443; 85025

== ENCOUNTER 2025-03-02 14:04 | Outpatient (CLI) | payer MEDICARE, SELFPAY ==
--- OUTSIDE RECORDS SUMMARY | 2024-01-23 04:00 | XMS_ITS | Encounter Summary ---
Author Organization [facility] Address [address] [place] [address] Care Team Providers Care Photo Stylist Name Role Phone Leeann Talamantes Primary Care Provider [phone] Encounter Details Date Type Department Care Team (Late st Contact Info) Description 01/23/2024 5:00 AM EDT Hospital Encounter [facility] [place] [address] [place] [address] Social History Tobacco Use Types Packs/Day Years Used Date Smoking Tobacco: Former Cigarettes 2 34 1 975 - 2009 Smokeless Tobacco: Never Alcohol Use Standard Drinks/Week Comments Yes 10 (1 standard drink = 0.6 oz pu re alcohol) Abuse Screen Answer Date Recorded Feels Unsafe at Home or Work/School no 01/25/2024 Feels Threatened by Someone no 01/07 Does Anyone Try to Keep You From Having Contact with Others or Doing Things Outside Your Home? no 01/25/2024 Physical Signs of Abuse Present no 01/25/2024 PHQ-2 Answer Date Recorded Patient Health Questionnaire-2 Score 0 01/25/2024 Sex and Gender Information Value Date Recorded Sex Assigned at Not on file Legal Sex Male 8:33 AM EDT Gender Identity Not on file Sexual Orientation Not on file documented as of this encounter Functional Status documented as of this encounter Plan of Treatment Upcoming Encounters Date Type Department Care Team (Late st Contact Info) Description 12/03/2025 9:30 AM EDT Clinical Support [facility] [address] [place] [address] Sanford Peters, TELESALES SUPERVISOR [address] [place] [address] documented as of this encounter Visit Diagnoses Not on filedocumented in this encounter Care Teams Photo Stylist Relationship Specialty Start Date End Date Leeann Talamantes PA [address] [place] [address] [address] PCP - General Physician Bolt Header 01/27/21 documented as of this encounter
--- OUTSIDE RECORDS SUMMARY | 2024-03-31 05:10 | XMS_ITS | Encounter Summary ---
[facility] Address [address] [place] [address] Care Team Providers Care Director Of Social Work Name Role Phone Leeann Talamantes Primary Care Provider [phone] Encounter Details Date Type Department Care Team (Late st Contact Info) Description 03/31/2024 5:10 AM EST Hospital Encounter [facility] [address] [place] [address] Social History Tobacco Use Types [...] on file documented as of this encounter Plan of Treatment Upcoming Encounters Date Type Department Care Team (Late st Contact Info) Description 12/03/2025 9:30 AM EDT Clinical Support [facility] [address] [place] [address] Sanford Peters, DOCK GUARD [address] [place] [address] documented as of this encounter Visit Diagnoses Not on filedocumented in this encounter Care Teams Director Of Social Work Relationship Specialty Start Date End Date Leeann Talamantes PA [address] [place] [address] [place] [address] PCP - General Physician Geophysical Laboratory Supervisor 01/27/21 documented as of this encounter
--- NOTE | 2025-03-02 14:05 | CT_ITS ---
FINAL REPORT TECHNIQUE: Thin section axial images were obtained through the lungs using a low-dose technique per lung cancer screening protocol. Reconstruction images were obtained using the axial data. Exam was performed using dose reduction technique. CLINICAL HISTORY: SCREENING former smoker quit 18 years ago, 2ppd x35 years. COMPARISON: None FINDINGS: CTDL vol: 2.90 DLP: 110.72 Former smoker 70 pack year history Lungs: Evidence of prior granulomatous disease. No consolidations. No suspicious nodules or masses. Lymph nodes: No thoracic lymphadenopathy. Mediastinum: Heart size is normal. Prominent coronary artery calcifications. Pleura/pericardium: No pleural or pericardial effusion. Other: Limited images of the upper abdomen demonstrate an incompletely imaged hypodense lesion in the right kidney. IMPRESSION: No suspicious pulmonary nodule or mass. Modifier S: Prominent coronary artery calcifications. Hypodense left renal lesion incompletely imaged. Consider ultrasound evaluation. Lung RADS: 1S Recommendation: 12 month follow-up low-dose chest CT Reviewed, Interpreted and Dictated by Arabella Arzola MD Transcribed by Delaney Trujillo Authenticated and [facility]
--- OUTSIDE RECORDS SUMMARY | 2025-03-02 14:16 | XMS_ITS | Clinical Summary ---
Author Organization [facility] Address [address] [place] [address] Care Team Providers Care Scallop Shucker Name Role Phone Leeann Talamantes Primary Care Provider [phone] Allergies Active Allergy Reactions Criticality Noted Date Comments Penicillins Other (See Comments) 02/11/2021 Bumps and blisters on lip. Medications amLODIPine (NORVASC) 2.5 MG tablet Take 1 tablet by mouth Daily. 1 Active rosuvastatin (CRESTOR) 20 MG tablet Take 15 mg by mouth Daily. FOR CHOLESTEROL Active aspirin 81 MG chewable tablet Chew 1 tablet Daily. Active Active Problems Problem Noted Date Diagnosed Date Prostate cancer 01/25/2024 Cancer Staging:Clinical stage from 11/26/2023:Stage I(cT2a, cN0, cM0, PSA: 7.1, Grade Group: 1) - Signed by Ashish Bauer MD on 01/25/2024 Encounters Date Type Department Care Team Description 12/01/2024 9:30 AM EDT Office Visit [facility] [address] [place] [address] Sanford Peters APRN Prostate cancer (Primary Dx) 12/01/2024 5:20 AM EDT - 12/01/2024 11:59 PM EDT Hospital Encounter [facility] [address] [place] [phone] Discharge Disposition: Home or Self Care 12/01/2024 Travel from Last 3 Months Family History Medical History Relation Name Comments Diabetes Father Arthritis Mother Cancer Mother breast Dementia Mother Hypertension Mother Cancer Paternal Aunt colon Cancer Paternal Grandmother ovarian Throat cancer Sister Relation Name Status Comments Father Mother Alive Paternal Aunt Paternal Grandmother Sister Social History Tobacco Use Types Packs/Day Years Used Date Smoking Tobacco: Former Cigarettes 2 34 1 975 - 2009 Smokeless Tobacco: Never Tobacco Cessation:Counseling Given: Not Answered Alcohol Use Standard Drinks/Week Comments Yes 10 [...] on file Sexual Orientation Not on file Last Filed Vital Signs Vital Sign Reading Time Taken Comments Blood Pressure 127/78 12/01/2024 9:38 AM EDT Pulse 76 12/01/2024 9:38 AM EDT Temperature 36.4 C (97.6 F) 12/01/2024 9:38 AM EDT Respiratory Rate 16 12/01/2024 9:38 AM EDT Oxygen Saturation 98% 12/01/2024 9:38 AM EDT Inhaled Oxygen Concentration - - Weight 88.8 kg (195 lb 12.8 oz) 12/01/2024 9:38 AM EDT Height 182.9 cm (6') 01/25/2024 1:27 PM EDT Body Mass Index 26.56 01/25/2024 1:27 PM EDT Plan of Treatment Upcoming Encounters Date Type Department Care Team (Late st Contact Info) Description 12/03/2025 9:30 AM EDT Clinical Support [facility] [address] [place] [address] Sanford Peters, DISPATCH MANAGER [address] [place] [address] Health Maintenance Due Date Last Done Comments TDAP/TD VACCINES (1 - Tdap) 08/28/1975 ZOSTER VACCINE (1 of 2) 08/28/1975 COLOGUARD 2001 COLON CANCER SCREENING 5 YEA R SIGMOIDOSCOPY 2001 COLONOSCOPY 2001 [address] CANCER SCREENING 2001 CT COLONOGRAPHY 2001 FECAL OCCULT BLOOD TEST 2001 FIT Testing (1 year) 2001 ANNUAL WELLNESS VISIT 02/11/2021 HEPATITIS C SCREENING 02/11/2021 AAA SCREEN ONCE 2021 INFLUENZA VACCINE 11/07/2024 02/16/2024, , 02/11/2022, Additional history exists COVID-19 Vaccine (8 - Pfizer risk 2023- season) 2024 02/16/2024, 01/06/2023, 02/11/2022, Additional history exists Pneumococcal Vaccine 50+ Completed 07/09/2023 Insurance [id number] [place] [address] MEDICARE A & B [facility] [employer] Care Teams Scallop Shucker Relationship Specialty Start Date End Date Leeann Talamantes PA [address] [facility] [address] [facility] [place] [address] PCP - General Physician Help Desk Assistant 01/27/21
--- OUTSIDE RECORDS SUMMARY | 2025-03-02 14:16 | XMS_ITS | Encounter Summary ---
[facility] Address [address] [place] [address] Care Team Providers Care Kennel Attendant Name Role Phone Leeann Talamantes Primary Care Provider [phone] Encounter Details Date Type Department Care Team (Late st Contact Info) Description 04/15/2024 Telephone [facility] [address] [facility] [address] [place] [address] Ashish Bauer MD [address] [place] [address] Social History Tobacco Use Types Packs/Day Years [...] [facility] [address] [place] [address] Sanford Peters, FISH TECHNOLOGIST [address] [place] [address] documented as of this encounter Visit Diagnoses Not on filedocumented in this encounter Care Teams Kennel Attendant Relationship Specialty Start Date End Date Leeann Talamantes PA [address] [place] [id number] PCP - General Physician Rental Clerk 01/27/21 documented as of this encounter
--- OUTSIDE RECORDS SUMMARY | 2025-03-02 14:16 | XMS_ITS ---
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 Past Treatment and Therapy Plans No past plan information found. Treatment Summaries Prostate cancer* Images from the original note were not included. Prostate Cancer Survivorship Plan General Information Patient name Edmund Edgar Date of 1955 Phone Email [email or web address] Cancer Treatment Team Patient Care Team: Ashish Bauer MD as Consulting Physician (Radiation Oncology) Lili Winchester MD as Referring Physician (Urology) Provider Phone numbers Care Team Provider: Kayla Cisse MD, ([phone]) Care Team Provider: Ashish Bauer MD, ([phone]) Care Team Provider: Lili Winchester MD, ([phone]) Care Team Provider: Nikunj Morrison MD, ([phone]) Post Treatment Care Team Primary Care Physician Leeann Talamantes PA [phone] [place] [address] [place] [address] Background Information Medical history Past Medical History: Angina at rest Arthritis Back problem Epididymitis Hx of bronchitis Hypertension Umbilical hernia Surgical history Past Surgical History: CARDIAC CATHETERIZATION COLONOSCOPY PROSTATE BIOPSY VASECTOMY Tobacco use Social History Tobacco Use Smoking Status Former Current packs/day: 0.00 Average packs/day: 2.0 packs/day for 34.0 years (68.0 ttl pk-yrs) Types: Cigarettes Start date: 1974 Quit date: 2008 Years since quittin.1 Smokeless Tobacco Never Family oncology history Cancer-related family history includes Cancer in his mother, paternal aunt,and paternal grandmother; Throat cancer (age of onset: 42) in his sister. Oncology Information Oncology/Hematology History Prostate cancer 11/26/2023 Cancer Staged Staging form: Prostate, AJCC 8th Edition - Clinical stage from 11/26/2023: Stage I (cT2a, cN0, cM0, PSA: 7.1, Grade Group: 1) - Signed by Ashish Bauer MD on 01/25/2024 01/25/2024 Initial Diagnosis Prostate cancer 04/18/2024 - 04/24/2024 Radiation Radiation OncologyTreatment Course: Edmund Edgar received 3500 cGy in 5 fractions to prostate gland via Stereotactic Radiation Therapy - SRT. Complications during Therapy: No concerns stated Modification to Treatment Plan: No Modifications Lifetime Dose Tracking No doses have been documented on this patient for the following tracked chemicals: Doxorubicin, Epirubicin, Idarubicin, Daunorubicin, Mitoxantrone, Bleomycin, Mitomycin, Doxorubicin Liposomal [No matching plan found] Persistent Treatment-Associated Adverse Effects at Completion of Therapy It is important to recognize that not every person experiences the following adverse events after treatment. You may not have any of these issues, a few or many adverse effects. Experiences are highly variable. Please discuss any adverse effects of cancer treatment with your cancer care team. After Surgical Therapy No Surgery Performed After Chemotherapy N/A After Radiation Therapy After External Beam Radiation Therapy or Cyberknife Radiation therapy can cause early and late side effects. Early side effects are those that happen during or shortly after treatment and are usually gone within a few weeks after treatment ends. Late side effects may take months or years to develop. The most common early side effects are fatigue (feeling tired) and skin changes. Other early side effects are usually related to the area being treated. If you continue to have some skin problems after treatment ends, be gentle with the skin in the treatment area until all signs of irritation are gone and continue to care for your skin as your doctors and nurses have advised. If you continue to have fatigue, you may need to plan your activities to maximize energy, get extra rest while your bodyis still recovering and follow other instructions from your doctors and nurses such as exercise andactivity. FPC effects of radiation therapy vary greatly depending on the areas included in the field ofradiation and the radiation techniques that were used. Normal tissue in the body that is close to the prostate such as the bowel, rectum and bladder may be exposed to some radiation during treatment. Exposure of the bowel to radiation may result in bowel changes such as diarrhea or frequent loose stools. Ulceration and bleeding may also occur. Any bright red blood or black, tarry stools or abnormal passage of stool should be reported to your doctor. Stay hydrated by drinking water and fluids with electrolytes. Chronic diarrhea may put you at risk for weight loss and malnutrition. Talk to yourdoctor or nurse - there may medications and special instructions that can help. There are also other specialists like gastroenterologists and dietitians who can help. If the lymph nodes were in the radiation field, there may be an increased risk of developing lymphedema. Lymphedema is a condition in which fluid collects and may cause swelling. Exposure of the bladder to radiation may result in bladder scarring and may increase the risk of urinary tract infections. Blood in the urine or signs of urinary tract infections such as pain in the bladder, groin, lower abdomen or lower back, frequent urination, bladder spasm, cloudy, dark and/or foul-smelling urine, frequent urge to urinate and fever should be reported to your doctor. Radiation to the pelvis may cause erectile dysfunction (inability to get and keep an erection firm enough for sexual penetration). If there was erectile dysfunction before treatment and if there are other risk factors for erectile dysfunction (such as advanced age), the risk may be higher. Each man???s situation is different. Medications to treat erectile dysfunction may be given. There are also other treatments and devices that can help. Having trouble with erections is a very personal concern. It???s important to communicate with your partner and to talk with your doctor or nurse about it. Treatments and referrals to other specialists may help. In rare cases, radiation therapy can increase the risk of a second cancer. Other N/A Care of your Venous Access Device No Venous Access Device currently in place General After Cancer Treatment It is not uncommon for cancer to impact other areas of your life such as relationships, work and mental health. If you develop financial concerns, resources are sometimes available to assist in theseareas. Depression and anxiety can present either during or after cancer diagnosis and treatment. Itis important to discuss with your physician any of these concerns so these resources can be made available to you. General Cancer Support & Resources [facility] [address], [address] [place] [address] Med Onc: Work Checker Onc: Carpentry Supervisor: Marce Poon - Psychiatric Nurse Practitioner: Marleni Moore APRN - [employer]! (A free smoking cessation program) Financial Counselor and Contact Information: [facility] Financial [facility] [phone] Machine Clothing Man Contact Information: Olivia May - Local Cancer Support Group and Contact Information: Berny Cancer Buddinasir: This support group is open to anyone that has been diagnosed with cancer of any type. Meets at 6:30pm on the last Sunday of each month. Location: [facility]; [address] [place] [address]. For more information call Barbara Jain @ . Prostate Cancer Support & Resources Local Resources TOO Prostate Support Group: The mission of Us TOO is to provide hope and improve the lives of of those affected by prostate cancer through support, education, and advocacy/ awareness. The group meets the of each month at 6:30 p.m. [address], [address] [place], [place] [id number] Surveillance How Frequent? Medical Oncology visits 1 month, 6 months later, 12 months later, then once yearly until PSA reaches goal value of 0.5ng/mL Lab tests PSA 3 months after CyberKnife completion, then every ~6 months until PSA reaches target alka value (PSA <0.5), then PSA every 6-12 months indefinitely (per urology) Imaging exams As clinically indicated Immunizations Influenza Herpes Zoster Pneumococcal Yearly Once As appropriate Tobacco Cessation The patient is not currently a tobacco user. Counseling given: Not Answered Monitor for ongoing toxicities: New or worsening urinary side effects Call your doctor if you have any of these signs or symptoms New or worsening symptoms. Pain that is new, unrelieved or bothersome. Difficulty with your emotions, anxiety, and/or depression. Physical problems that affect your abilities in your daily life or those that are bothersome (for example, continued fatigue, trouble sleeping, sexual problems, or edema). Referrals provided There are no referral needs at this time. Self Care Plan Self Care Plan: What You Can Do to Stay Healthy after Treatment for Cancer Cancer treatments may increase your chance of developing other health problems years after you havecompleted treatment. The purpose of this self care plan is to inform you about what steps you can take to maintain good health after cancer treatment. Keep in mind that every person treated for cancer is different and that these recommendations are not intended to be a substitute for the advice of a doctor or other health assistant child care teacher. Please use these recommendations to talk with your health care provider about an appropriate follow up care plan for you. Surveillance for Your Cancer Recommendation Frequency Comments Cancer surveillance visit with medical provider that is focused on detecting signs of recurrence ofyour cancer. For additional information, visit www.livestrong.org or www.cancer.net/patient/Survivorship Frequency depends on type and stage of cancer you had. (If you had a higher risk cancer, you may be seen more often). Your doctor has provided you with a personalized cancer treatment summary and survivorship care plan. If you need another copy, ask your doctor. General Cancer Screening for Men Cancer screening tests are designed to find cancer or pre-cancerous areas before there are any symptoms and, generally, when treatments are most successful. Various organizations have developed guidelines for cancer screening for men. While these guidelines vary slightly between different organizations, they cover the same basic screening tests for prostate and colorectal cancers. In addition, during routine health examinations (at any age) your health care provider may also evaluate for cancers of the skin, mouth and thyroid. Not all screening tests are right for everyone. Your personal and family cancer history, and/or the presence of a known genetic predisposition, can affect which tests are right for you, and at what age you begin them. Therefore, you should discuss these with your health care provider. Your care plan will also include a section on follow up care foryour type of cancer, and these recommendations override the general screening recommendations for that particular type of cancer in the general population. The [place] [employer] (ACS) recommends these screening guidelines for men: Recommendation Frequency Comments Colon and Rectal Cancer Screening For more information see the ACS document Colorectal Cancer: Early Detection. www.cancer.org/ssLINK/peyutczbcc-qlpsic-nnbmk-detection-lisseth Options for colon cancer screening can be divided into those that screen for both cancer and polyps, and those that just screen for cancer.Screening should begin at age 45 (unless you are considered high risk (see comments), using one of the following testing schedules: Tests that find polyps and cancer (Preferred over those that find cancer alone. If any of these tests are positive, a colonoscopy should be done.) Flexible sigmoidoscopy every five years, or Colonoscopy every 10 years, or Double-contrast barium enema every five years, or CT colonography (virtual colonoscopy) every five years Tests that primarily test for cancer Yearly fecal occult blood test (FOBT)*, or Yearly fecal immunochemical test (FIT) *, or Stool DNA test (sDNA), interval uncertain* * The multiple stool take-home test should be used. One test done by the doctor in the office is not adequate. A colonoscopy should be done if the test is positive. Talk with your doctor about your medical history, and what colorectal cancer screening test and schedule is best for you. Individuals at higher risk of colon cancer should have screening earlier and potentially more frequently. Those at higher risk of colon and rectal cancer: Individuals with a family history of colon or rectal cancer in a relative who was diagnosed before the age of 60 Individuals with a history of polyps Individuals with inflammatory bowel disease (Crohn's disease or ulcerative colitis) Individuals with a genetic predisposition to colon or rectal cancer, such as hereditary non-polyposis colon cancer (HNPCC) syndrome or familial adenomatous polyposis (FAP) syndrome Prostate Cancer Screening For more information, see the ACS Document Prostate Cancer Prevention and Early Detection: http://www.cancer.org/cancer/prostatecancer/moreinformation/prostatecancerearlyd etection/index Starting at age 50 (unless you are considered high risk ), men should talk to their doctor about the pros and cons of prostate cancer testing, and then decide if they want to be tested. Tests that can be used to detect for prostate cancer include Prostate-specific antigen (PSA) or digital rectal exam (LISS). ndividuals are considered higher risk if they are and/or have a family history of prostate cancer. Those who are considered high risk should have this talk at age 40 or 45. Testicular Screening For more information, see the ACS Document Testicular Cancer Detection: http://www.cancer.org/cancer/testicularcancer/detailedguide/nxnmslmuge-zvmflx-os tection Men of any age can develop testicular cancer; however, about half of all cases occur in men between the ages of20 and 34. A testicular self- exam is recommended monthly after a man has gone through puberty. In doing so, alfonso should look and feel for any hard lumps, rounded bumps, or any change in the size, shape, or consistency of his testicles. If something appears abnormal, see a health care provider for further evaluation. Sun Exposure and Skin Cancer Risk Skin cancer is the most commonly diagnosed type of cancer, and rates are on the rise. However, thisis one cancer that in most cases can be prevented or detected early. While you may hear that you need the sun to make vitamin D, in reality you only need a few minutes a day to do this. Exposure to ultraviolet (UV) rays, either by natural sunlight or tanning beds, can lead to skin cancer. In additio n, UV rays lead to other forms of skin damage, including wrinkles, loss of skin elasticity, dark patches (sometimes called age spots or liver spots), and pre- cancerous skin changes (such as dry, scaly, rough patches). Although dark- skinned people are less likely to develop skin cancer, they can anddo develop skin cancers, most often in areas that are not exposed to sun (on the soles of the feet,under nails, and genitals). You can do a lot to protect yourself from damaging UV rays and to detect skin cancer early. Start by practicing sun safety, including using a broad spectrum sunscreen (which protects against UVA and UVB rays) with an SPF of at least 30 every day, avoiding peak sun times (10 a.m. to 4 p.m., when therays are strongest) and wearing protective clothing such as hats, sunglasses and long- sleeved shirts. Examine your skin regularly so you become familiar with any moles or birthmarks. If a mole has changed in any way, you should have a health care provider examine the area. This includes a change in size, shape or color; the development of scaliness, bleeding, oozing, itchiness or pain; or the development of a sore that will not heal. If you have a lot of moles, it may be helpful to make note of moles using photographs or a mole map . For a guide to performing a skin exam, visit www.skincarephysicians.com/skincancernet/skin_examinations.html. Healthy Lifestyle For some cancer survivors, the experience is the motivation to making healthy lifestyle changes. Itmay seem insignificant, but these changes have been shown to reduce the risk of the cancer coming back or a new cancer developing. Below are some tips on adopting a healthier lifestyle. Maintaining ahealthy weight is important in cancer prevention, as is physical activity and eating a healthy diet. Strive to incorporate all three pieces of the puzzle: healthy weight, balanced diet and regular exercise. Recommendation Goal Comments Maintain a healthy weight. For more information, visit http://www.nhlbi.nih.gov/health/public/heart/obesity/lose_wt/index.htm www.win.niddk.nih.gov Call the [place] [employer] Talk to your health care team about what a healthy weight is for you, and take stepsto reach and maintain that weight. For many people reaching their ideal weight can be a challenge; however, losing even 5 to 10 poundscan lower blood pressure, blood sugar and cholesterol levels. Weigh yourself weekly to monitor for weight gain/loss Being overweight can increase your chance of your cancer coming back. Maintaining a healthy weight, physical activity and eating a healthy diet are all important in cancer prevention. Being overweight can increase your chance of having high blood pressure, high blood sugar and/or high cholesterol, which can lead to heart disease, diabetes and stroke. If you would like more information about your blood sugar, cholesterol or blood pressure, talk with your primary care provider. Eat a healthy diet, mostly from plant sources. For more information, visit http://www.choosemyplate.gov/food-groups/ Eat healthy, including plenty of fruits and vegetables daily. Drink more water, less soda and juice. Limit how much alcohol you drink (if you drink at all). Strive to have two- thirds of your plate be vegetables, fruits, whole grains and beans, while one- third or less should be an animal product. Choose fish and chicken and limit red meat and processed meats. Limit intake of alcohol to two drinks per day. Exercise. To learn more about recommendations for diet, activity and weight, visit AICR???s Guidelines for Survivors http://preventcancer.aicr.org/site/PageServer?pagename=patients_survivors_guidel irvin ACS Eat Healthy and Get Active www.cancer.org/Healthy/EatHealthyGetActive/index Experts recommend at least 30 minutes of zdwekmdx-di-cnmnsppj activity per day, five days a week. Research shows that exercise can help you control your weight, improve your energy level, and help you sleep at night. The marquez is to find a physical activity you enjoy such as walking, dancing or gardening and do it regularly. If you have been inactivefor a while, start out slowly. You can start out by exercising 10 minutes a day several days a week. If you feel dizzy, short of breath, or have chest pain during exercise, stop exercising and talk with your primary care doctor. Do not use tobacco in any form. For more information, visit http://www.cdc.gov/tobacco/campaign/tips/ If you use tobacco, quit as soon as possible. Smoking is the most preventable cause of in the [place] If you would like more information, ask your doctor or you can call a national hotline at 6(488)-QUIT-NOW. Have regular check-ups by a healthcare professional. For more information about healthy screening tests for men visit the U.S. Department of Health and Human Services. http://www.womenshealth.gov/leqxcaoqn-vrbzn-rht-vaccines/uwydqechc-hvlhi-vkr-men / For more information about adult vaccinations visit the CDC: http://www.cdc.gov/vaccines/recs/schedules/adult-schedule.htm Keep up-to-date on general health screening tests, including cholesterol, blood pressure and glucose (blood sugar) levels. Get an annual influenza vaccine (flu shot). Get vaccinated with the pneumococcal vaccine, which prevents a type of pneumonia, and re-vaccinatedas determined by your health care team. Don???t forget dental and eye health! The [place] [employer] recommends adults have their eyes examined every two years until age 60, then annually. People who wear glasses or correctivelenses or are at high risk for eye problems (i.e., diabetics, family history of eye disease) shouldbe seen more frequently. The [place] [employer] recommends adults see their dentist at least once a year. [facility] [address] [facility] [id number]
--- OUTSIDE RECORDS SUMMARY | 2025-03-02 14:16 | XMS_ITS | Clinical Summary ---
Author Organization [facility] Address [address] 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 Medications amLODIPine (Norvasc) 2.5 MG tablet Take 1 tablet (2.5 mg) by mouth 1 (one) time each day. 10/06/2023 Active rosuvastatin (Crestor) 20 MG tablet 11/02/2023 Active ASPIRIN 81 MG chewable tablet Chew 1 tablet (81 mg) 1 (one) time each day. Active Active Problems Problem Noted Date Diagnosed Date Prostate cancer 12/31/2023 Cancer Staging:Clinical stage from 12/31/2023: cT2c, PSA: 7.7, Grade Group: 1 - Unsigned Encounters Date Type Department Care Team Description 12/23/2024 Results Follow-Up Medical Office Building Urology [address] [facility] [address] [facility] [address] [facility], [address] [place] [address] Lili Winchester MD 12/22/2024 8:45 AM EDT Office Visit Medical Office Building Urology [address] [facility], [address] [place] [address] Lili Winchester MD Prostate cancer (CMS/HCC) (Primary Dx) 12/22/2024 Travel 12/21/2024 Travel 12/01/2024 Telephone [facility] Urology [address] [place] [address] Lili Winchester MD Rcvd Records from Last 3 Months Family History Medical History Relation Name Comments Breast cancer Mother Nancy Edgar Cancer Mother Nancy Edgar Clotting disorder Mother Nancy Edgar Dementia Mother Nancy Edgar Heart Problem Mother Nancy Edgar Hypertension Mother Nancy Edgar Skin cancer Mother Nancy Edgar Stroke Mother Nancy Edgar Cancer Mother's Brother Arnulfo Villarreal Throat cancer Other sister Cancer Paternal Grandmother Betito Edgar Relation Name Status Comments Mother Nancy Edgar Mother's Brother Arnulfo Villarreal Other sister Paternal Grandmother Betito Edgar Social History Tobacco Use Types Packs/Day Years Used Date Smoking Tobacco: Former Cigarettes 1.5 35 Q uit: 1974 Smokeless Tobacco: Never Tobacco Cessation:Counseling Given: Not Answered Alcohol Use Standard Drinks/Week Comments Yes 12 (1 standard drink = 0.6 oz pure alcohol) (2) 12oz., cans/bottles beer per day - 6 days per week. PHQ-2 Answer Date Recorded Patient Health Questionnaire-2 Score 0 12/22/2024 PHQ-9 Answer Date Recorded Patient Health Questionnaire-9 Score 0 12/22/2024 Sex and Gender Information Value Date Recorded Sex Assigned at Not on file Legal Sex Male 2:52 PM EDT Gender Identity Not on file Sexual Orientation Not on file Last Filed Vital Signs Vital Sign Reading Time Taken Comments Blood Pressure 136/81 12/22/2024 8:36 AM EDT Pulse 58 12/22/2024 8:36 AM EDT Temperature 36.7 C (98.1 F) 12/22/2024 8:36 AM EDT Respiratory Rate 18 03/27/2024 12:01 PM EST Oxygen Saturation 100% 12/22/2024 8:36 AM EDT Inhaled Oxygen Concentration - - Weight 88 kg (194 lb 0.1 oz) 12/22/2024 8:36 AM EDT Height 182.9 cm (6') 12/22/2024 8:36 AM EDT Body Mass Index 26.31 12/22/2024 8:36 AM EDT Plan of Treatment Upcoming Encounters Date Type Department Care Team ([facility] st Contact Info) Description 07/07/2025 8:30 AM EDT Clinical Support Medical Office Building Lab [address] [place] [address] 07/07/2025 9:30 AM EDT Office Visit Medical Office Building Urology [address] [facility], [address] [place] [address] Lili Winchester MD [address] [place] [address] Health Maintenance Due Date Last Done Comments [facility]-Hepatitis C Screening 1955 [facility]-Medicare Annual Wellness (AWV) 1955 [facility]-/Child/Adol SDOH Screenings 1955 [facility]- SDOH Screenings 1974 [facility]-Adult SDOH Screenings 1974 [facility]-Zoster Vaccines (1 of 2) 08/28/1975 CT Colonography 2001 Colonoscopy 2001 FIT-DNA 2001 FIT 2001 FOBT 2001 Sigmoidoscopy 2001 [facility]-Colorectal Cancer Screening 2001 [facility]-Abdominal Aortic Aneurysm (AAA) Screening 2021 SGL-TZEHD-21 Vaccine ( season) 2024 02/16/2024, 01/06/2023, 02/11/2022, Additional history exists [facility]-Influenza Vaccine (#1) 12/08/202402/15, 01/06/2023, 02/11/2022, Additional history exists [facility]-Depression Screening 12/22/2025 12/22/2024, 12/08 [facility]-DTaP,Tdap,and Td Vaccines (2 - Td or Tdap) 02/06/2026 02/07/2016 [facility]-RSV Vaccine: 60+ Years or (1 - 1-dose 75+ series) 08/28/2031 [facility]-Pneumococcal Vaccine: 50+ Years Completed 07/09/2023 [facility]-Obesity Intervention Completed 025, 07/28/2024, 03/27/2024, Additional history exists HPV Vaccines Aged Out No longer eligi ble based on patient's age to complete this topic [facility]-HIB Vaccines Aged Out No longer e ligible based on patient's age to complete this topic [facility]-Hepatitis A Vaccines Aged Out No longer eligible based on patient's age to complete this topic [facility]-IPV Vaccines Aged Out No longer e ligible based on patient's age to complete this topic [facility]-Rotavirus Vaccines Aged Out No lo nger eligible based on patient's age to complete this topic Procedures Procedure Name Priority Date/Time Associated Diagnosis Comments PROSTATE SPECIFIC ANTIGEN, DIAGNOSTIC, SERUM Routine 12/22/2024 8:02 AM EDT Prostate cancer (CMS/HCC) from Last 3 Months Results * PSA, diagnostic (12/22/2024 8:02 AM EDT) PSA, Diagnostic, Serum 3.21 0.00 - 4.50 ng/mL 12/22/2024 2:23 PM EDT [facility] Blood Venous blood specimen / Unknown Venipuncture / Unknown 12/22/2024 8:02 AM EDT 12/22/2024 8:03 AM EDT Narrative [facility] - 12/22/2024 2:23 PM EDT Performed by [employer] electrochemiluminescent immunoassay which is standardized against the PSA Yung Reference Standard (WHO 96/670). Results obtained with different test methods or kits cannot be used interchangeably. us Lili Winchester MD LAB BLOOD ORDERABLES Final R esult Performing Organization Address City/State/[facility] Co de Phone Number [facility] [address] [place] [address] from Last 3 Months Insurance MEDICARE AARP Care Teams Railroad Car Inspector Relationship Specialty Start Date End Date Leeann Talamantes PA [facility] [address] [place] [address] PCP - General 09/07/23 Shukri Yuen MD [address] [place] [address] [phone] Consulting Physician Radiation Oncology 12/11/23
== END 2025-03-02 23:59 | disposition home or self-care (01) ==
LOC: RAD 14:04
PROVIDERS: PCP Physician Assistant; Visit Provider Physician Assistant
DX: Z12.2 Encounter for screening for malignant neoplasm of respiratory organs (principal); Z87.891 Personal history of nicotine dependence; I25.10 Atherosclerotic heart disease of native coronary artery without angina pectoris; N28.9 Disorder of kidney and ureter, unspecified
CPT/HCPCS: 71271